=== PATIENT | female | born 2005 | race Two or more races ===

== ENCOUNTER 2024-09-16 12:12 | Observation (INO) | payer MEDICAID ==
[2024-09-16] MEDS ORDERED: PREN-96 PO (12:52)
--- NOTE | 2024-09-16 18:12 | DVHDS2 ---
Physician Discharge Progress N Final Diagnosis: cramping Operations or Procedures: Operations or Procedures nst,sono Condition on Discharge: Good Disposition: Home Discharge Instructions: Diet: Regular Activity: No Restrictions, As Tolerated Medications: na Follow Up Care: Specialist: 2d Discharge Statement: "Patient was advised to return to the ER or call 911 if any headaches, dizziness, shortness of breath, chest pain, abdominal pain, bleeding, fevers, or worsening of medical condition. Patient was counseled about treatment plan, medications, possible side effects, patientverbalized understanding. All questions were answered to the best of my ability. This discharge took greater then 30 minutes in planning, reviewing documentation, counseling the patient, and discussing with other team members." RAÚL OSBORN DO Sep 16, 2024 18:12
== END 2024-09-16 13:44 | disposition home or self-care (01) ==
LOC: LDRP 12:12 → UNDOADMOB 12:12 → LDRP 12:26 → UNDODISOB 13:44
PROVIDERS: ADMIT Obstetrics & Gynecology; ATTEND Obstetrics & Gynecology
DX: O26.893 Other specified pregnancy related conditions, third trimester (principal); N89.8 Other specified noninflammatory disorders of vagina; R10.2 Pelvic and perineal pain; Z3A.32 32 weeks gestation of pregnancy; Z79.899 Other long term (current) drug therapy
CPT/HCPCS: 59025; 81002; G0378

== ENCOUNTER 2024-10-26 09:48 | Observation (INO) | payer MEDICAID ==
[~2024-10-26 09:48] MED LIST: PREN-96 PO
--- NOTE | 2024-10-26 10:32 | DVH ---
BIOPHYSICAL PROFILE HISTORY: term Comparison Study: None TECHNIQUE: Multiple real-time grayscale sonographic images through the gravid uterus of the fetus wi th duplex Doppler color flow and M-mode spectral analysis FINDINGS: BIOPHYSICAL PROFILE: breathing score: 2 movement score: 2 tone score: 2 Quantitative RICKI score: 2 (RICKI: 12.4 Cm.) Total score: 8 The cervix is not visualized Single live fetus in cephalic presentation. heart rate 153 beats per minute. Posterior/fundal placenta without previa or abruption IMPRESSION: Biophysical profile score: 8
--- NOTE | 2024-10-26 21:29 | DVHDS2 ---
Physician Discharge Progress N Final Diagnosis: testing for term Operations or Procedures: Operations or Procedures 19yo IUP@40.0wks, +FM, Denies LOF/VB/VILLANUEVA/vision changes/RUQ pain. VSS NST reactive SVE by RN: /-2, intact, vertex kick counts and Preeclampsia warning signs reviewed. PTL precautions given and when to return to the hospital. Other Interventions Other Interventions [place] [address] Ph: [phone] DIAGNOSTIC IMAGING Diagnostic Imaging Report : [id number] Signed PATIENT: NAYAN CAZARESAACCT: [id number] UNIT: [id number] : 2005 LOC: [facility] ROOM / BED: TRIAGE2 / A AGE / SEX: 19 / F ADM STATUS: ADM IN SERVICE 09 ORDERING PHYSICIAN: CRUZ OCNNER CNM PROCEDURE(s): BPP - BIOPHYSICAL PROFILE REASON: term ORDER NUMBER(s): [id number], ACCESSION NUMBER(s): [id number] BIOPHYSICAL PROFILE HISTORY: term Comparison Study: None TECHNIQUE: Multiple real-time grayscale sonographic images through the gravid uterus of the fetus with duplex Doppler color flow and M-mode spectral analysis FINDINGS: BIOPHYSICAL PROFILE: breathing score: 2 movement score: 2 tone score: 2 Quantitative RICKI score: 2 (RICKI: 12.4 Cm.) Total score: 8 The cervix is not visualized Single live fetus in cephalic presentation. heart rate 153 beats per minute. Posterior/fundal placenta without previa or abruption IMPRESSION: Biophysical profile score: 8 ATED BY: ANDREA RUSS MD DICTATED DATE/TIME: 10/26/24 1030 SIGNED BY: ANDREA RUSS MD SIGNED DATE/TIME: 10/26/24 103 CC: Condition on Discharge: Stable Disposition: Home Discharge Instructions: Diet: Regular Activity: No Restrictions, As Tolerated Medications: see med list Follow Up Care: Specialist: f/u in 2 days Discharge Statement: "Patient was advised to return to the ER or call 911 if any headaches, dizziness, shortness of breath, chest pain, abdominal pain, bleeding, fevers, or worsening of medical condition. Patient was counseled about treatment plan, medications, possible side effects, patientverbalized understanding. All questions were answered to the best of my ability. This discharge took greater then 30 minutes in planning, reviewing documentation, counseling the patient, and discussing with other team members." Visit Coding OBGYN Date of Service: Oct 26, 2024 Billing Provider: CRUZ CONNER CNM PARASITOLOGIST Common Visit Codes: [id number] OBS CARE (LOW) PARASITOLOGIST Procedure Codes: 40114-84- NON-STRESS TEST CRUZ CONNER CNM Oct 26, 2024 21:29
== END 2024-10-26 11:24 | disposition home or self-care (01) ==
LOC: LDRP 09:48
PROVIDERS: ADMIT Obstetrics & Gynecology; ATTEND Obstetrics & Gynecology
DX: O48.0 Post-term pregnancy (principal); Z98.890 Other specified postprocedural states; Z79.899 Other long term (current) drug therapy; Z3A.40 40 weeks gestation of pregnancy
CPT/HCPCS: 59025; 76819; 81002; 94760; G0378; 76818

== ENCOUNTER 2024-10-28 06:16 | Observation (INO) | payer MEDICAID ==
[~2024-10-28] VITALS: Ht 160 cm; Wt 87.1 kg
--- NOTE | 2024-10-28 09:47 | DVH ---
BIOPHYSICAL PROFILE HISTORY: Term Comparison Study: None available at time of dictation. TECHNIQUE: Multiple real-time grayscale sonographic images through the gravid uterus of the fetus wi th duplex Doppler color flow and M-mode spectral analysis FINDINGS: BIOPHYSICAL PROFILE: breathing score: 2 movement score: 2 tone score: 2 Quantitative RICKI score: 2 (RICKI: 13.5 Cm.) Total score: 8/8 Single live fetus in cephalic presentation. heart rate 123 beats per minute. Posterior placenta without previa or abruption Biophysical profile score 8/8 corresponding to an EMILY of 10/26/24 IMPRESSION: Biophysical profile score: 8/8
--- NOTE | 2024-10-29 15:23 | DVHDS2 ---
Physician Discharge Progress N Final Diagnosis: iup at 40wks Operations or Procedures: Operations or Procedures nst,sono Condition on Discharge: Good Disposition: Home Discharge Instructions: Diet: Regular Activity: Light activity Medications: na Follow Up Care: Specialist: 2d Discharge Statement: "Patient was advised to return to the ER or call 911 if any headaches, dizzin ess, shortness of breath, chest pain, abdominal pain, bleeding, fevers, or worsening of medical condition. Patient was counseled about treatment plan, medications, possible side effects, patientverbalized understanding. All questions were answered to the best of my ability. This discharge took greater then 30 minutes in planning, reviewing documentation, counseling the patient, and discussing with other team members." Visit Coding OBGYN Date of Service: Oct 28, 2024 Billing Provider: RAÚL OSBORN DO GROUNDSKEEPER Common Visit Codes: [id number] INP/OBS CARE (HIGH) GROUNDSKEEPER Procedure Codes: 03698-81- NON-STRESS TEST RAÚL OSBORN DO Oct 29, 2024 15:23
== END 2024-10-28 14:55 | disposition home or self-care (01) ==
LOC: LDRP 08:55 → UNDOADMOB 08:55 → LDRP 09:02
PROVIDERS: ADMIT Obstetrics & Gynecology; ATTEND Obstetrics & Gynecology
DX: O48.0 Post-term pregnancy (principal); Z3A.40 40 weeks gestation of pregnancy; Z79.899 Other long term (current) drug therapy; Z98.890 Other specified postprocedural states
CPT/HCPCS: 59025; 76819; 81002; 94760; G0378; 76818

== ENCOUNTER 2024-10-30 10:09 | Observation (INO) | payer MEDICAID ==
--- NOTE | 2024-10-30 11:04 | DVH ---
Procedure: US BIOPHYSICAL PROFILE 10/30/2024 10:29 AM Indication: TERM Comparison: US BIOPHYSICAL PROFILE on DOS: 10/28/24, US BIOPHYSICAL PROFILE on DOS: 10/26/24 Technique: Sonogram of gravid uterus utilizing grayscale and color techniques. FINDINGS: Single living intrauterine gestation. Presentation: Cephalic Placenta: Posterior heart rate: 140 bpm RICKI: 12.8 cm, DVP: 5.6 cm Maternal cervix: Not visualized Biophysical Profile: breathing score: 2 movement score: 2 tone: 2 Quantitative RICKI score: 2 Total score: 8/8 IMPRESSION: 1. Single living as above. 2. Biophysical profile score: 8/8.
[2024-10-30] MEDS ORDERED: NALBUPHINE HCL 10 MG/1ml INJECTION IM PRN (13:15)
[2024-10-30] MEDS ORDERED: DERMOPLAST 60ML BOTTLE TOP PRN (13:15)
[2024-10-30] MEDS ORDERED: LIDOCAINE 2%HCL (LOCAL ANESTH.) INJ 20ML MDV IJ PRN (13:15)
[2024-10-30] MEDS ORDERED: LACTATED RINGER'S 1,000 ML IV SCH (13:15)
[2024-10-30] MEDS ORDERED: PHISODERM TOP SOLN 240ML BTL TOP PRN (13:15)
[2024-10-30] MEDS ORDERED: WITCH HAZEL-GLYCERIN PAD TOP PRN (13:15)
--- NOTE | 2024-11-02 13:59 | DVHDS2 ---
Physician Discharge Progress N Final Diagnosis: labor check Operations or Procedures: Operations or Procedures nst,sono Condition on Discharge: Good Disposition: Home Discharge Instructions: Diet: Regular Activity: No Restrictions, As Tolerated Medications: na Follow Up Care: Specialist: 1w Discharge Statement: "Patient was advised to return to the ER or call 911 if any headaches, dizziness, shortness of breath, chest pain, abdominal pain, bleeding, fevers, or worsening of medical condition. Patient was counseled about treatment plan, medications, possible side effects, patientverbalized understanding. All questions were answered to the best of my ability. This discharge took greater then 30 minutes in planning, reviewing documentation, counseling the patient, and discussing with other team members." Visit Coding OBGYN Date of Service: Nov 02, 2024 Billing Provider: RAÚL OSBORN DO SURGICAL ELASTIC KNITTER Common Visit Codes: [id number] INP/OBS CARE (HIGH) SURGICAL ELASTIC KNITTER Procedure Codes: 63977-39- NON-STRESS TEST RAÚL OSBORN DO Nov 02, 2024 13:59
== END 2024-10-30 11:41 | disposition home or self-care (01) ==
LOC: LDRP 10:09
PROVIDERS: ADMIT Obstetrics & Gynecology; ATTEND Obstetrics & Gynecology
DX: O48.0 Post-term pregnancy (principal); Z98.890 Other specified postprocedural states; Z79.899 Other long term (current) drug therapy; Z3A.40 40 weeks gestation of pregnancy
CPT/HCPCS: 59025; 76819; 81002; 94760; G0378; 76818

== ENCOUNTER 2024-11-01 06:44 | Observation (INO) | payer MEDICAID ==
--- NOTE | 2024-11-01 12:03 | DVH ---
CLINICAL HISTORY: post dates. Term . COMPARISON: US BIOPHYSICAL PROFILE on DOS: 10/30/24, US BIOPHYSICAL PROFILE on DOS: 10/28/24, US BIOPHYSI DEANDRE PROFILE on DOS: 10/26/24 TECHNIQUE: biophysical profile was performed. Transabdominal sonographic images of the fetus we re obtained. FINDINGS: The fetus is in cephalic position. heart rate measures 145 BPM. Amniotic fluid index measures 12.1 cm. The placenta is posterior in position without evidence of placenta previa or abrupt ion. BPP profile is an overall score of 8/8, with 2/2 points for breathing, with at least one episode of breathing over a 30 second duration during a 30 minute observation, 2/2 points for m ovements, with 3 or more discrete body or limb movements, 2/2 points for tone, with one or more episodes of extremity extension with return to flexion, or opening and closing of hand, and 2/ 2 points for amniotic fluid, with at least 1 pocket of amniotic fluid that measures 2 cm in 2 perpend icular planes. IMPRESSION: BPP score of 8/8.
--- NOTE | 2024-11-02 00:01 | DVHDS2 ---
Discharge Summary Date of Admission Nov 01, 2024 at 10:42 Date of Discharge: Nov 01, 2024 Admitting Diagnosis post dates Brief Hx & Hospital Course: nst bpp Condition at Discharge: Good Final Diagnosis/Problems List post dates Discharge Disposition: Home SNF Discharge Will this Physician continue t: No Discharge Instruct/Medications Diet: Regular Activity: No Restrictions, As Tolerated Activity comment: pelvic rest Follow Up/Referral: as scheduled kick counts labor Discharge Statement: "Patient was advised to return to the ER or call 911 if any headaches, dizziness, shortness of breath, chest pain, abdominal pain, bleeding, fevers, or worsening of medical condition. Patient was counseled about treatment plan, medications, possible side effects, patientverbalized understanding. All questions were answered to the best of my ability. This discharge took greater then 30 minutes in planning, reviewing docum entation, counseling the patient, and discussing with other team members." ASSESSMENT ASSESSMENT Assessment Visit Coding OBGYN Date of Service: Nov 01, 2024 Billing Provider: MEL HERNANDEZ DO CARD CLEANER Common Visit Codes: 99749-PTL/OBS SAME DATE (LOW), 18766-HXC/OBS SAME DATE (MOD), 60008-EKD/OBS SAME DATE (HIGH) CARD CLEANER Procedure Codes: 47963-17- NON-STRESS TEST MEL HERNANDEZ DO Nov 02, 2024 00:01
== END 2024-11-01 12:55 | disposition home or self-care (01) ==
LOC: LDRP 10:42
PROVIDERS: ADMIT Obstetrics & Gynecology; ATTEND Obstetrics & Gynecology
DX: O48.0 Post-term pregnancy (principal); Z98.890 Other specified postprocedural states; Z79.899 Other long term (current) drug therapy; Z3A.40 40 weeks gestation of pregnancy
CPT/HCPCS: 59025; 76819; 81002; 94760; G0378; 76818

== ENCOUNTER 2024-11-02 06:58 | Inpatient (IN) | payer MEDICAID ==
[~2024-11-02] VITALS: Ht 160 cm; Wt 87.5 kg
[2024-11-02] MEDS ORDERED: LIDOCAINE 2%HCL (LOCAL ANESTH.) INJ 20ML MDV IJ PRN (20:15)
[2024-11-02 20:54] LABS: Urine Bacteria None Seen /hpf (None Seen)
[2024-11-02 21:08] LABS: Basophils # (auto) 0 10 ^3/uL (0-0.2); Basophils % (auto) 0.3 % (0.0-2.0); Eosinophils # (auto) 0.1 10 ^3/uL (0-0.8); Eosinophils % (auto) 0.6 % (0.0-7.0); Hematocrit 36.9 % (36.0-46.0); Hemoglobin 12.3 g/dL (12.2-16.2); Lymphocytes # (auto) 1.8 10 ^3/uL (0.4-5.4); Lymphocytes % (auto) 19.8 % (10.0-50.0); Mean Corpuscular Hemoglobin 30.6 pg (28.0-32.0); Mean Corpuscular Hgb Conc. 33.3 g/dL (32.0-36.0); Mean Corpuscular Volume 92.1 fL (80.0-100.0); Monocytes # (auto) 0.7 10 ^3/uL (0-1.3); Monocytes % (auto) 7.6 % (0.0-12.0); Neutrophils # (auto) 6.7 10 ^3/uL (1.6-8.6); Neutrophils % (auto) 71.7 % (37.0-80.0); Nucleated Red Blood Cells % 0.1 %; Platelet Count (auto) 260 10^3/uL (140-450); Red Blood Cells 4.01 10^6/uL (4.0-5.20); Red Cell Distribution Width 14.6 % (11.8-14.3); White Blood Cell 9.3 10^3/uL (4.4-10.8)
[2024-11-02 21:11] LABS: Urine Blood Negative /uL (Negative); Urine Clarity Clear (Clear); Urine Color Light-Yellow (Yellow); Urine Protein, UAD Negative (Negative); Urine Specific Gravity 1.014 (1.001-1.035); Urine Squamous Epithelial Cell FEW /hpf (<5); Urine Urobilinogen Normal (Negative); Urine WBC 1 /HPF (0-5); Urine pH 6.5 (5.0-9.0)
--- NOTE | 2024-11-02 21:11 | DVHHP2 ---
OB CC & HPI Date Date of Admission: Nov 02, 2024 Patient Identification: : 3 (Eectopic x 1) Para: 1 EDC: Oct 26, 2024 EGA: 41 weeks Chief Complaints: Reason for admission: induction of labor Admission Nurse Assessment Rev: Yes History of Present Complaints HPI: 19 yo presented to L&D for scheduled IOL. Denies UC's VB or ROM. Confirmed + FM. PNC: Pt has been receiving routine car here at [facility] with Dr Burns. Late intake at 34 weeks. Seen x 3 visits EDC is 10/26/24 based on LMP dates. Current gestaational age is 41 weeks and course has been uncomplicated. OB Hx: Ectopic x 1 x 1: Both uncomplicated Past Medical History Cardiac: No pertinent Hx Pulmonary: No pertinent Hx Central Nervous System: No pertinent Hx GI: No pertinent Hx Hemotology/Oncology: No pertinent Hx Hepatobiliary: No pertinent Hx Psychiatric: No pertinent Hx Musculoskeletal: No pertinent Hx Rheumotologic: No pertinent Hx Infectious Disease: No peritnent Hx ENT: No pertinent Hx Renal/: No pertinent Hx Endocrine: No pertinent Hx Dermatology: No pertinent Hx Past Surgical History: No pertinent Hx OB History OB History Care: Limited Care Obstetrical Complications: None Medical Complications: None Allergies: Coded Allergies: NO KNOWN ALLERGIES (Unverified , 10/28/24) Home Meds Reported Medications Vit W/ Ferrous Fumara ( One Daily) Daily Tab, 1 TAB PO DAILY, #90 TAB 3 Refills 09/16/24 Current Medications Current Medications Medications (Trade) Dose Ordered Sig/Mello Route PRN Reason Start Time Stop Time Status Last Admin Lactated Ringer's 1,000 ml @ 125 mls/hr Q8H IV 11/02/24 20:15 UNV Witch Lynne (Tucks) 1 pad PRN PRN TOP PERINEAL AREA DISCOMFORT 11/02/24 20:15 UNV Sodium Lauryl Sulfate (Phisoderm) 240 ml PRN PRN TOP PERINEAL AREA DISCOMFORT 11/02/24 20:15 UNV Benzocaine (Dermoplast) 1 applic PRN PRN TOP PERINEAL AREA DISCOMFORT 11/02/24 20:15 UNV Lidocaine HCl (Xylocaine) 20 ml ONCE PRN IJ PERINEAL AREA DISCOMFORT 11/02/24 20:15 UNV Family & Social History Family/Social History Past Family/Social History: Unremarkable Blood Type: A+ Rubella: immune RPR/VDRL: Negative GBS Status: Negative HBsAG: Negative Review of Systems Constitutional: No symptom reported Ears, Nose, & Throat: No symptom reported Eyes: No symptom reported Pulmonary/Respiratory: No symptom reported Cardiovascular: No symptom reported Gastrointestinal: No symptom reported Genitourinary: No symptom reported Musculoskeletal: No symptom reported Skin: No symptom reported Psychiatric: No symptom reported Endocrine: No symptom reported Hemotologic/Lymphatic: No symptom reported OB Admission Exam Physical Exam HEENT: TMs Normal, Nasal Mucosa Normal, Eyes non-injected, Oropharynx Normal, PERRLA, Moist Membranes, EOMI Heart: Rhythm Normal Lungs: Clear Abdomen: Gravid Extremities: Normal Reflexes: Normal Pelvic Exam: Performed by CNM Cervical Dilatation: 3cm Effacement: Other (70%) Station: -1 Membranes: Intact Heart Rate: 130's Accelerations: Accelerations Present Decelerations: No Decelerations Short Term Variability: Present [facility] Variability: Average (6-25) Contractions on Admission: None OB Plan Plan Admitting Diagnosis: Induction of Labor Plan: Induction Induction Methd: Pitocin protocol Other Plan: Admit to L&D IV hydration Continuous EFM Pitocin per protocol Analgesia or epidural if desired MD consult and needed Visit Coding OBGYN Date of Service: Nov 02, 2024 Billing Provider: AYAH NROTON CNM SCALE INSTALLER Common Visit Codes: [id number] INP/OBS CARE (HIGH) AYAH NORTON CNM Nov 02, 2024 21:11
[2024-11-02 21:21] LABS: INR 0.92 (0.9-1.15); Partial Thromboplastin Time 27.5 SEC (24.5-34.5); Prothrombin Time 9.8 sec (9.3-11.8)
[2024-11-02 21:23] LABS: Amphetamine Screen, Urine Neg (NEGATIVE); Barbiturate Scree,Urine Neg (NEGATIVE); Benzodiazephine Screen, Urine Neg (NEGATIVE); Cannabinoid Screen, Urine Neg (NEGATIVE); Cocaine Screen, Urine Neg (NEGATIVE); Opiate Scree,Urine Neg (NEGATIVE); Phencyclidine Screen, Urine Neg (NEGATIVE)
[2024-11-02 21:25] LABS: Alanine Aminotransferase 23 U/L (7-40); Albumin 4.2 g/dL (3.2-4.8); Anion Gap 13 (5-15); Aspartate Aminotransferase 22 U/L (13-40); BUN/Creatinine Ratio 10.3 (10.0-20.0); Calcium 9.6 mg/dL (8.7-10.4); Carbon Dioxide 21 mmol/L (20-31); Chloride 105 mmol/L (98-107); Sodium 139 mmol/L (136-145); Total Protein 6.8 g/dL (5.7-8.2)
[2024-11-02 21:26] LABS: Alkaline Phosphatase 171 U/L (46-116); Bilirubin, Total 0.4 mg/dL (0.2-1.0); Blood Urea Nitrogen 6 mg/dL (9-23); Glucose 106 mg/dL (74-106); Potassium 3.4 mmol/L (3.5-5.1)
[2024-11-02] MEDS ORDERED: fentaNYL 400mCg/200ml W ROPIVA 200 ML EPI SCH (22:00)
[2024-11-02] MEDS ORDERED: NALOXONE HCL 0.4 MG/ML VIAL IV ONE (22:00)
[2024-11-02] MEDS: fentaNYL CITRATE 100 MCG/2 ML VL IV ONE (22:47)
[2024-11-02] MEDS: LACTATED RINGER'S 1,000 ML IV SCH (22:48)
--- NOTE | 2024-11-02 23:08 | EPIDURAL ---
Anesthesia Procedural Note - Epidural Informed consent obtained?: Yes Medication Administered: Fentanyl 100 mcg Sterile prept drape: Yes Spinal level of insertion: L3-L4 Test dose of lidocaine & Epine: Negative Infusion started: Yes Start time: 21:55 End time: 07:41 Procedure description Procedure description: Julia Rosen 19 y/o otherwise healthy 41 weeks AOG, (1 ectopic ), with BMI 35.1, desires PCEA for labor & delivery. She was admitted for induction of labor. Vital signs stable at 125/67, 85, 95% on room air (and remained stable throughout procedure). Described pain score at 3-4/10 during contractions but she wishes to have the epidural placed before she is started on pitocin. She states she had an epidural with her first baby . Chart reviewed, Ms. Edson Rosen consented for PCEA, and positioned sitting on the bed. Fluid bolus still running while doing the PCEA. Vital signs were taken every 2 minutes and remained stable throughout. Landmarks were identified. Area sterilized with iodine. L3-L4 infiltrated with 1% lidocaine. Epidural space identified by loss of resistance. Attempt x 1. Catheter placed very smoothly. Test dose (-) x 2. Catheter secured in place. Infusion of Ropivacaine started. Patient remained stable and comfortable. Delivered a single live baby girl via with APGARs 8 & 9 at 1 & 5 minutes respectively. Placenta delivered spontaneously. Epidural catheter pulled with tip intact. No redness, swelling, or oozing around the epidural area. Ms. Edson Rosen is back to baseline. Total face to face time: 2154 - 7 Total epidural time: 891 - 9570 (12/04/2024) RICA IMRZA MD Nov 02, 2024 23:08
[2024-11-02] MEDS: DERMOPLAST 60ML BOTTLE TOP PRN (23:38)
[2024-11-02] MEDS: PHISODERM TOP SOLN 240ML BTL TOP PRN (23:38)
[2024-11-02] MEDS: WITCH HAZEL-GLYCERIN PAD TOP PRN (23:38)
[2024-11-02] MEDS: LACT. RINGERS/OXYTOCIN 20UNITS 1,000 ML IV SCH (23:48)
--- NOTE | 2024-11-03 01:31 | DVHPN2 ---
CNM Labor Progress Note Date and Time Seen Date Seen: Nov 03, 2024 Time Seen: 00:45 Subjective Patient reports: No new complaints Subjective Comment Comfortable with epidural in place Objective Vital Signs VSS Monitoring Method Monitoring Method: External Heart Rate Heart Rate Baseline: 150 Heart Rate Variability: Moderate Presence of FHR Accelerations: Yes Presence of FHR Decelerations: No Changes in Trends of Patterns: No Are all 5 Components of the FH: Yes Contractions Contractions Frequency: Occasional Duration of Contraction: 40 Contractions Intensity: Mild Contractions Resting Tone: Relaxed Membranes Membranes: Intact Vaginal Exam Vag Exam Deferred: Yes Vaginal Exam Presentation: VTX Vaginal Exam Show: None Medications Medications - Pitocin: Yes (6mu/min) Medication - Epidural: Yes Lab Results Lab Results Vital Signs Date Time Temp Pulse Resp B/P (MAP) Pulse Ox O2 Delivery O2 Flow Rate FiO2 11/02/24 22:47 120/70 Current Medications Medications (Trade) Dose Ordered Sig/Mello Start Time Stop Time Status Last Admin Dose Admin Lactated Ringer's 1,000 ml @ 125 mls/hr Q8H 11/02/24 20:15 11/02/24 22:48 125 MLS/HR Witrafael Lynne (Tucks) 1 pad PRN PRN 11/02/24 20:15 11/02/24 23:38 1 PAD Sodium Lauryl Sulfate (Phisoderm) 240 ml PRN PRN 11/02/24 20:15 11/02/24 23:38 240 ML Benzocaine (Dermoplast) 1 applic PRN PRN 11/02/24 20:15 11/02/24 23:38 1 APPLIC Lidocaine HCl (Xylocaine) 20 ml ONCE PRN 11/02/24 20:15 Oxytocin 500 ml @ 999 mls/hr Q31M ONCE 11/02/24 20:15 11/02/24 21:08 DC Oxytocin 500 ml @ 125 mls/hr Q4H ONCE 11/02/24 20:45 11/03/24 00:44 DC Oxytocin 1,000 ml @ 6 ml/hr Q24H 11/02/24 21:00 11/02/24 23:48 6 ML/HR Naloxone HCl (Narcan) 0.2 mg PRN ONCE 11/02/24 22:00 11/02/24 22:03 DC Ephedrine Sulfate (ePHEDrine SULFATE) 10 mg PRN ONCE 11/02/24 22:00 11/02/24 22:03 DC Lactated Ringer's 500 ml @ 500 mls/hr Q1H ONCE 11/02/24 22:00 11/02/24 22:59 DC Fentanyl Citrate 100 mcg ONCE ONCE 11/02/24 22:30 11/02/24 22:35 DC 11/02/24 22:47 100 MCG Laboratory Tests Test 11/02/24 20:38 11/02/24 20:14 Range/Units White Blood Count 9.3 4.4-10.8 10^3/uL Red Blood Count 4.01 4.0-5.20 10^6/uL Hemoglobin 12.3 12.2-16.2 g/dL Hematocrit 36.9 36.0-46.0 % Mean Corpuscular Volume 92.1 80.0-100.0 fL Mean Corpuscular Hemoglobin 30.6 28.0-32.0 pg Mean Corpuscular Hemoglobin Concent 33.3 32.0-36.0 g/dL Red Cell Distribution Width 14.6 H 11.8-14.3 % Platelet Count 260 140-450 10^3/uL Mean Platelet Volume 6.9 6.9-10.8 fL Neutrophils (%) (Auto) 71.7 37.0-80.0 % Lymphocytes (%) (Auto) 19.8 10.0-50.0 % Monocytes (%) (Auto) 7.6 0.0-12.0 % Eosinophils (%) (Auto) 0.6 0.0-7.0 % Basophils (%) (Auto) 0.3 0.0-2.0 % Neutrophils # (Auto) 6.7 1.6-8.6 10 ^3/uL Lymphocytes # (Auto) 1.8 0.4-5.4 10 ^3/uL Monocytes # (Auto) 0.7 0-1.3 10 ^3/uL Eosinophils # (Auto) 0.1 0-0.8 10 ^3/uL Basophils # (Auto) 0 0-0.2 10 ^3/uL Nucleated Red Blood Cells 0.1 % Prothrombin Time 9.8 9.3-11.8 sec Prothrombin Time INR 0.92 0.9-1.15 Activated Partial Thromboplast Time 27.5 24.5-34.5 SEC Sodium Level 139 136-145 mmol/L Potassium Level 3.4 L 3.5-5.1 mmol/L Chloride Level 105 98-107 mmol/L Carbon Dioxide Level 21 20-31 mmol/L Anion Gap 13 5-15 Blood Urea Nitrogen 6 L 9-23 mg/dL Creatinine 0.58 0.550-1.02 mg/dL Glomerular Filtration Rate Calc 133 >90 mL/min BUN/Creatinine Ratio 10.3 10.0-20.0 Serum Glucose 106 74-106 mg/dL Calcium Level 9.6 8.7-10.4 mg/dL Total Bilirubin 0.4 0.2-1.0 mg/dL Aspartate Amino Transferase (AST) 22 13-40 U/L Alanine Aminotransferase (ALT) 23 7-40 U/L Alkaline Phosphatase 171 H 46-116 U/L Total Protein 6.8 5.7-8.2 g/dL Albumin 4.2 3.2-4.8 g/dL Treponema pallidum Antibody Non-reactive Negative Hepatitis C Antibody Negative Negative Urine Color Light-yellow Yellow Urine Clarity Clear Clear Urine pH 6.5 5.0-9.0 Urine Specific [place] 1.014 1.001-1.035 Urine Protein Negative Negative Urine Ketones Trace Negative Urine Blood Negative Negative /uL Urine Nitrite Negative Negative Urine Bilirubin Negative Negative Urine Urobilinogen Normal Negative mg/dL Urine Leukocyte Esterase Negative Negative /uL Urine RBC 1 0 - 4 /hpf Urine Microscopic WBC 1 0-5 /HPF Urine Squamous Epithelial Cells Few <5 /hpf Urine Bacteria None seen None Seen /hpf Urine Glucose Normal Normal mg/dL Urine Opiates Screen Neg NEGATIVE Urine Fentanyl Screen Neg NEGATIVE Urine Barbiturates Screen Neg NEGATIVE Urine Phencyclidine Screen Neg NEGATIVE Urine Amphetamines Screen Neg NEGATIVE Urine Benzodiazepines Screen Neg NEGATIVE Urine Cocaine Screen Neg NEGATIVE Urine Cannabinoids Screen Neg NEGATIVE Assessment Assessment IUP at 41.1 weeks IOL Plan Plan Continue previous blan Reassess as needed Plan discussed with: Patient, Other (RN) Visit Coding OBGYN Date of Service: Nov 03, 2024 Billing Provider: AYAH NORTON CNM AUTOMOBILE PAINTER Common Visit Codes: 96441-QQW/OBS SAME DATE (MOD) AYAH NORTON CNM Nov 03, 2024 01:31
[2024-11-03] MEDS: ROPIVACAINE HCL 200 ML ONE (03:16)
[2024-11-03] MEDS: ePHEDrine SULFATE 50 MG/ML AMP IV ONE (03:57)
--- NOTE | 2024-11-03 05:49 | DVHPN2 ---
CNM Labor Progress Note Date and Time Seen Date Seen: Nov 03, 2024 Time Seen: 05:40 Subjective Patient reports: No new complaints Subjective Comment Comfort level remains optiimal with epidural in place Objective Vital Signs 93/51-86-16 Monitoring Method Monitoring Method: External Heart Rate Heart Rate Baseline: 140 Heart Rate Variability: Moderate Presence of FHR Accelerations: Yes Presence of FHR Decelerations: No Changes in Trends of Patterns: No Are all 5 Components of the FH: Yes Contractions Contractions Frequency: Other (2.5-3 min) Duration of Contraction: 50 Contractions Intensity: Moderate Contractions Resting Tone: Relaxed Membranes Membranes: Intact Vaginal Exam Vaginal Exam Dilation: 4 Vaginal Exam Effacement: 80 Vaginal Exam Station: -1 Vaginal Exam Presentation: VTX Vaginal Exam Show: Small Medications Medications - Pitocin: Yes Medication - Epidural: Yes Lab Results Lab Results Vital Signs Date Time Temp Pulse Resp B/P (MAP) Pulse Ox O2 Delivery O2 Flow Rate FiO2 11/02/24 22:47 120/70 Current Medications Medications (Trade) Dose Ordered Sig/Mello Start Time Stop Time Status Last Admin Dose Admin Lactated Ringer's 1,000 ml @ 125 mls/hr Q8H 11/02/24 20:15 11/03/24 03:56 125 MLS/HR Witch Lynne (Tucks) 1 pad PRN PRN 11/02/24 20:15 11/02/24 23:38 1 PAD Sodium Lauryl Sulfate (Phisoderm) 240 ml PRN PRN 11/02/24 20:15 11/02/24 23:38 240 ML Benzocaine (Dermoplast) 1 applic PRN PRN 11/02/24 20:15 11/02/24 23:38 1 APPLIC Lidocaine HCl (Xylocaine) 20 ml ONCE PRN 11/02/24 20:15 Oxytocin 500 ml @ 999 mls/hr Q31M ONCE 11/02/24 20:15 11/02/24 21:08 DC Oxytocin 500 ml @ 125 mls/hr Q4H ONCE 11/02/24 20:45 11/03/24 00:44 DC Oxytocin 1,000 ml @ 6 ml/hr Q24H 11/02/24 21:00 11/02/24 23:48 6 ML/HR Naloxone HCl (Narcan) 0.2 mg PRN ONCE 11/02/24 22:00 11/02/24 22:03 DC Ephedrine Sulfate (ePHEDrine SULFATE) 10 mg PRN ONCE 11/02/24 22:00 11/02/24 22:03 DC 11/03/24 03:57 10 MG Lactated Ringer's 500 ml @ 500 mls/hr Q1H ONCE 11/02/24 22:00 11/02/24 22:59 DC Fentanyl Citrate 100 mcg ONCE ONCE 11/02/24 22:30 11/02/24 22:35 DC 11/02/24 22:47 100 MCG Laboratory Tests Test 11/02/24 20:38 11/02/24 20:14 Range/Units White Blood Count 9.3 4.4-10.8 10^3/uL Red Blood Count 4.01 4.0-5.20 10^6/uL Hemoglobin 12.3 12.2-16.2 g/dL Hematocrit 36.9 36.0-46.0 % Mean Corpuscular Volume 92.1 80.0-100.0 fL Mean Corpuscular Hemoglobin 30.6 28.0-32.0 pg Mean Corpuscular Hemoglobin Concent 33.3 32.0-36.0 g/dL Red Cell Distribution Width 14.6 H 11.8-14.3 % Platelet Count 260 140-450 10^3/uL Mean Platelet Volume 6.9 6.9-10.8 fL Neutrophils (%) (Auto) 71.7 37.0-80.0 % Lymphocytes (%) (Auto) 19.8 10.0-50.0 % Monocytes (%) (Auto) 7.6 0.0-12.0 % Eosinophils (%) (Auto) 0.6 0.0-7.0 % Basophils (%) (Auto) 0.3 0.0-2.0 % Neutrophils # (Auto) 6.7 1.6-8.6 10 ^3/uL Lymphocytes # (Auto) 1.8 0.4-5.4 10 ^3/uL Monocytes # (Auto) 0.7 0-1.3 10 ^3/uL Eosinophils # (Auto) 0.1 0-0.8 10 ^3/uL Basophils # (Auto) 0 0-0.2 10 ^3/uL Nucleated Red Blood Cells 0.1 % Prothrombin Time 9.8 9.3-11.8 sec Prothrombin Time INR 0.92 0.9-1.15 Activated Partial Thromboplast Time 27.5 24.5-34.5 SEC Sodium Level 139 136-145 mmol/L Potassium Level 3.4 L 3.5-5.1 mmol/L Chloride Level 105 98-107 mmol/L Carbon Dioxide Level 21 20-31 mmol/L Anion Gap 13 5-15 Blood Urea Nitrogen 6 L 9-23 mg/dL Creatinine 0.58 0.550-1.02 mg/dL Glomerular Filtration Rate Calc 133 >90 mL/min BUN/Creatinine Ratio 10.3 10.0-20.0 Serum Glucose 106 74-106 mg/dL Calcium Level 9.6 8.7-10.4 mg/dL Total Bilirubin 0.4 0.2-1.0 mg/dL Aspartate Amino Transferase (AST) 22 13-40 U/L Alanine Aminotransferase (ALT) 23 7-40 U/L Alkaline Phosphatase 171 H 46-116 U/L Total Protein 6.8 5.7-8.2 g/dL Albumin 4.2 3.2-4.8 g/dL Treponema pallidum Antibody Non-reactive Negative Hepatitis C Antibody Negative Negative Urine Color Light-yellow Yellow Urine Clarity Clear Clear Urine pH 6.5 5.0-9.0 Urine Specific [place] 1.014 1.001-1.035 Urine Protein Negative Negative Urine Ketones Trace Negative Urine Blood Negative Negative /uL Urine Nitrite Negative Negative Urine Bilirubin Negative Negative Urine Urobilinogen Normal Negative mg/dL Urine Leukocyte Esterase Negative Negative /uL Urine RBC 1 0 - 4 /hpf Urine Microscopic WBC 1 0-5 /HPF Urine Squamous Epithelial Cells Few <5 /hpf Urine Bacteria None seen None Seen /hpf Urine Glucose Normal Normal mg/dL Urine Opiates Screen Neg NEGATIVE Urine Fentanyl Screen Neg NEGATIVE Urine Barbiturates Screen Neg NEGATIVE Urine Phencyclidine Screen Neg NEGATIVE Urine Amphetamines Screen Neg NEGATIVE Urine Benzodiazepines Screen Neg NEGATIVE Urine Cocaine Screen Neg NEGATIVE Urine Cannabinoids Screen Neg NEGATIVE Assessment Assessment IUP at 41.1 weeks IOL Plan Plan Continue previous plan Reassess as needed Plan discussed with: Patient, Other (RN) Visit Coding OBGYN Date of Service: Nov 03, 2024 Billing Provider: AYAH NORTON CNM [employer]ALLION KEEPER Common Visit Codes: [id number] INP/OBS CARE(MOD) AYAH NORTON CNM Nov 03, 2024 05:49
--- NOTE | 2024-11-03 07:21 | LDN2 ---
Labor and Delivery Note Date 11/03/24 Age 20 2 Para 2 EGA 41 Diagnosis Term , delivered Vaginal Delivery: VTX Vacuum Assisted: No Placenta: Spontaneous Sex: Female Weight Pending Apgars 8/9 Amniotic Fluid: Clear Anesthesia Epidural Episiotomy: No Repaired with 1st deg vaginal/labial tears x 2 repaired w/ 3-0 chromic EBL 150 mL Labs Blood Bank 11/02/24 20:38: Blood Type A POSITIVE Complications None Comments/Significant Med Crystal uncomplicated Mother and baby doing well Visit Coding OBGYN Date of Service: Nov 03, 2024 Billing Provider: DEBORAH QUINTERO DO CIRCUIT [employer]ARD REPAIR TECHNICIAN Common Visit Codes: [id number] INP/OBS CARE(HIGH) CIRCUIT BOARD REPAIR TECHNICIAN Procedure Codes: [id number] OB CARE,VAG DELIVERY DEBORAH QUINTERO DO Nov 03, 2024 07:21
[2024-11-03] MEDS: LACT. RINGERS/OXYTOCIN 20UNITS 500 ML IV ONE ×2 (07:25→07:26)
[2024-11-03] MEDS ORDERED: ONDANSETRON ODT 4 MG TAB PO PRN (08:30)
[2024-11-03] MEDS: IBUPROFEN 600 MG TAB PO PRN (09:51)
[2024-11-03 11:06] VITALS: BP 101/57; PULSE 77; RESP 16; TEMP 98.2; O2SAT 96
[2024-11-03] MEDS: LACTATED RINGER'S 500 ML IV ONE (11:28)
[2024-11-03] MEDS: fentaNYL CITRATE 100 MCG/2 ML VL ONE (11:29)
[2024-11-03 15:00] VITALS: BP 107/56; PULSE 82; RESP 16; TEMP 98; O2SAT 96
[2024-11-03] MEDS: ACETAMINOPHEN 325 MG TAB PO PRN (15:18)
[2024-11-03] MEDS ORDERED: IBU600T PO (16:52)
[2024-11-03 19:00] VITALS: BP 109/68; PULSE 82; RESP 16; TEMP 97.8; O2SAT 97
[2024-11-03 23:00] VITALS: BP 117/70; PULSE 92; RESP 18; TEMP 97.7; O2SAT 100
[2024-11-04 03:00] VITALS: BP 108/65; PULSE 86; RESP 15; TEMP 98.1; O2SAT 96
--- NOTE | 2024-11-04 06:27 | DVHDS2 ---
Physician Discharge Progress N Final Diagnosis: Term , delivered Operations or Procedures: Operations or Procedures Commentary: Commentary Normal labor and delivery Uncomplicated PP course Condition on Discharge: Stable Disposition: Home Discharge Instructions: Diet: Regular Activity: Light activity Follow Up/Referral: [address] Burns Medications: Ibuprofen Follow Up Care: Discharge Statement: "Patient was advised to return to the ER or call 911 if any headaches, dizziness, shortness of breath, chest pain, abdominal pain, bleeding, fevers, or worsening of medical condition. Patient was counseled about treatment plan, medications, possible side effects, patientverbalized understanding. All questions were answered to the best of my ability. This discharge took greater then 30 minutes in planning, reviewing documentation, counseling the patient, and discussing with other team members." Visit Coding OBGYN Date of Service: Nov 04, 2024 Billing Provider: DEBORAH QUINTERO DO SILK SNAPPER Common Visit Codes: [id number]/[id number] DISCH DAY <30MIN DEBORAH QUINTERO DO Nov 04, 2024 06:27
[2024-11-04 06:50] VITALS: BP 116/79; PULSE 85; RESP 15; TEMP 97.8; O2SAT 98
[2024-11-04 09:26] VITALS: TEMP 36.6
[2024-11-04 10:31] VITALS: BP 122/75; PULSE 75; RESP 15; O2SAT 97
== END 2024-11-04 11:15 | disposition home or self-care (01) | DRG 560 ==
LOC: LDRP 19:34
PROVIDERS: ADMIT Advanced Practice Midwife; ATTEND Obstetrics & Gynecology
PROC: 3E0S3BZ Introduction of Anesthetic Agent into Epidural Space, Percutaneous Approach (ICD-10-PCS; principal; 2024-11-02)
PROC: 00HU33Z Insertion of Infusion Device into Spinal Canal, Percutaneous Approach (ICD-10-PCS; 2024-11-02)
PROC: 10E0XZZ Delivery of Products of Conception, External Approach (ICD-10-PCS; 2024-11-03)
PROC: 0UQMXZZ Repair Vulva, External Approach (ICD-10-PCS; 2024-11-03)
PROC: 3E033VJ Introduction of Other Hormone into Peripheral Vein, Percutaneous Approach (ICD-10-PCS; 2024-11-03)
DX: O48.0 Post-term pregnancy (principal); Z37.0 Single live birth; O70.0 First degree perineal laceration during delivery; Z3A.41 41 weeks gestation of pregnancy
CPT/HCPCS: 36415; 59025; 59409; 59414; 62282; 80053; 80307; 81001; 85025; 85610; 85730; 86780; 86803; 86850; 86900; 86901; 94760; 94762; 96360; 96361; 96366; 96374; G0378; J2590